=== PATIENT | female | born 1975 | race Hispanic/Latino ===

== ENCOUNTER 2021-06-13 11:30 | Emergency (ER) | payer SELFPAY ==
[~2021-06-13] VITALS: Ht 157.5 cm; Wt 99.8 kg
[2021-06-13] MEDS ORDERED: PREDNISONE20 MG PO (12:25)
[2021-06-13] MEDS ORDERED: LISINOPRIL10 MG PO (12:25)
[2021-06-13] MEDS ORDERED: CEFDINIR300 MG PO (14:00)
[2021-06-13] MEDS ORDERED: PROVENTIL HFA6.7 GM INH (14:01)
== END 2021-06-13 14:15 | disposition home or self-care (01) ==
LOC: FSED 11:58
DX: U07.1 COVID-19 (principal); J12.82 Pneumonia due to coronavirus disease 2019
CPT/HCPCS: 71045; 80053; 81003; 85025; 99284